=== PATIENT | male | born 1995 | race Two or more races ===

== ENCOUNTER 2020-06-17 16:27 | Emergency (ER) | payer MEDICAID, OTHER ==
[~2020-06-17] VITALS: Ht 175.3 cm; Wt 72.6 kg
[2020-06-17 16:39] VITALS: BP 121/67
== END 2020-06-17 17:54 | disposition home or self-care (01) ==
LOC: ER 16:27
DX: S93.401A Sprain of unspecified ligament of right ankle, initial encounter (principal); X58.XXXA Exposure to other specified factors, initial encounter; Y93.89 Activity, other specified; Y92.89 Other specified places as the place of occurrence of the external cause; Y99.8 Other external cause status
CPT/HCPCS: 73610